=== PATIENT | female | born 1990 | race Caucasian/White ===

== ENCOUNTER 2020-07-13 13:00 | Outpatient (CLI) | payer OTHER, SELFPAY ==
--- NOTE | ~2020-07-13 | XR_ITS ---
XR foot RT min 3V DATE: 07/13/2020 13:37 INDICATION: Right foot pain, fourth metatarsal area TECHNIQUE: 3 views COMPARISON: None FINDINGS: No fracture or dislocation, periosteal reaction or bone destruction. Joint spaces are prese rved. No erosive changes. IMPRESSION: Negative Reviewed, dictated and finalized at location A. STED ADVISOR IMPRESSION: Negative
== END 2020-07-13 13:01 | disposition home or self-care (01) ==
LOC: CHSIMG 13:07
PROVIDERS: Visit Provider Podiatrist
DX: M79.671 Pain in right foot (principal)
CPT/HCPCS: 73630